=== PATIENT | female | born 1955 | race Two or more races ===

== ENCOUNTER 2025-02-18 19:01 | Emergency (ER) | payer OTHER, MEDICAID ==
[~2025-02-18] VITALS: Ht 167.6 cm; Wt 77.0 kg
--- NOTE | 2025-02-18 19:11 | ED.PDOC ---
SOB-HPI HPI Comments Alessandro: HPI: Poor Historian. 69-year-old female presents to emergency department from urgent Care for acute respiratory distress. Patient has history of asthma all her life uses albuterol and Ventolin. She ran out of her medicine yesterday. She complains of wheezing. Onset of symptoms was this past Tuesday. Denies any chest pain. At urgent care she was told she had blood pressure was high and she was satting in the 80s. She says that she does not use any supplemental oxygen at home. Patient states at one point she had borderline hypertension but she is not on any blood pressure medications. She had a recent physical and was told everything was fine. Patient was brought to the ER for hypoxemia and hypertensive urgency but she does not appear to be in significant distress. Past Medical History: Asthma, hypertension Past Surgical History: REVIEW OF SYSTEMS: CONSTITUTIONAL: Denies acute: fever, diaphoresis, chills, generalized weakness. HEAD: Denies acute: headache, photophobia Eyes: Denies acute: Double vision, vision loss, eye pain, eye discharge. EARS: Denies acute: tinnitus, hearing loss, ear discharge, ear pain, THROAT: Denies acute: sore throat, swelling, difficulty swallowing , pain with swallowing, change in voice. NECK: Denies acute: neck pain, neck swelling, stiff neck. HEART: Denies acute : chest pain, palpitations, LUNGS: Denies acute: , cough, hemoptysis ABDOMEN: Denies acute: abdominal pain, Nausea, Vomiting, diarrhea, melena , hematemesis, hematochezia SKIN: Denies acute: rash, redness, lesions, itchiness. EXTREMITIES: Denies acute: calf pain, numbness, tingling, weakness, denies pain in extremity. Denies acute: Low back pain. Neuro: Denies acute: focal neurological deficit, motor or sensory focal neurological deficit, tremors, seizure like activity, confusion, dizziness, change in mental status, loss of bowel or bladder function, cauda equina like symptoms. : Denies acute: dysuria, hematuria, flank pain, increase in urinary frequency. PSYCH: Denies acute: hallucination, suicidal ideation, homicidal ideation. FEMALE: Denies acute: abnormal vaginal bleeding, foul odor, unusual discharge. PHYSICAL EXAM: General: -----mild---acute distress, awake and alert. Head: normocephalic, atraumatic. Neck: supple, trachea is midline, no swelling. Throat: Normal phonation. Eyes:, no erythema, no purulent discharge, no proptosis, no icterus. Heart: regular rate, regular rhythm, no significant murmur appreciated. Lungs: no apparent respiratory distress, Able to speak in full sentences. No wheezing, no rhonchi, no crackles. No stridors Clear to auscultation bilaterally. Abdomen: non tender to palpation, non distended, soft, no guarding, no rebound, + bowel sounds. Neuro: Awake, Alert, oriented to name, self, situation, follows commands GCS=15. Speech is normal. Skin: no petechia, no purpura, no cyanosis, non-pale, not jaundice. Lower extremities: --no - Pitting edema no deformity, no focal swelling, no calf TTP. Makes eye contact. moves all four extremities. Face: no apparent facial droop. ED COURSE: DISCLAIMER: This medical document was created using an electronic medical record system with voice recognition software and computerized dictation system. Although this document has been carefully reviewed, there might still be some phonetic and typographical errors. Occasional wrong-word or "sound-alike" substitutions may h ave occurred due to the inherent limitations of voice recognition software. These areas are purely typographical due to imperfections of the software programs and do not reflect any compromise in the patient's medical care. Please read the chart carefully and recognize, using context, where these substitutions have occurred. Chief Complaint: Shortness of Breath Time Seen by MD: 19:10 Information Source: Patient Mode of Arrival: Ambulatory Was a procedure done? Was a procedure done?: No X-Ray, Labs, Meds, VS Vital Signs Date Time Temp Pulse Resp B/P (MAP) Pulse Ox O2 Delivery O2 Flow Rate FiO2 02/18/25 19:02 98.8 98 20 203/119 100 98.8 SEPSIS Sepsis Screen Date sepsis recognized/suspect: Feb 18, 2025 Time Sepsis recognized/suspect: 1903 Recent Procedure: No On Antibiotic Therapy: No Respiratory Rate >20: No Heart Rate >90: No Temp<36 C (96.8 F) or >38.3 C: No SBP <90 or MAP <65 mmHG: No New Acute Mental Status Change: No Is the patient on CPAP, BIPAP,: No Physician Orders Metal Drill Operator (02/18/25 ) Complete Blood Count (02/18/25 19:05) Comprehensive Metabolic Panel (02/18/25 19:05) B-Type Natriuretic Peptide (02/18/25 19:05) Lactic Acid W/ Reflex Order (02/18/25 19:05) Magnesium (02/18/25 19:05) Urinalysis (02/18/25 19:05) Troponin-I Hs (02/18/25 19:05) Chest Portable (02/18/25 19:05) Electrocardigram (02/18/25 19:05) Troponin-I Hs (02/18/25 20:05) Troponin-I Hs (02/18/25 22:05) Electrocardigram (02/18/25 20:05) Electrocardigram (02/18/25 22:05) Albuterol Medneb (Ventolin Medneb) (02/18/25 19:15) Insulin R (Human) (Insulin R) (02/18/25 19:15) Methylprednisolone Sod Succ (Solu Medrol (02/18/25 19:15) Vital Signs Date Time Temp Pulse Resp B/P (MAP) Pulse Ox O2 Delivery O2 Flow Rate FiO2 02/18/25 19:02 98.8 98 20 203/119 100 98.8 Departure 1 Departure Time of Disposition: 19:14 Impression: Primary Impression: Acute asthma exacerbation Additional Impression: Hypertensive urgency I personally scribed for HILARIA ALLEN DO ([email or web address]) on 02/18/25 at 19:11. Electronically submitted by Horacio Buckner ([email or web address]). HILARIA ALLEN DO Feb 18, 2025 19:11
[2025-02-18] MEDS ORDERED: IPRATROPIUM BROM 0.5 MG/2.5ML INH SOL NEB ONE (19:15)
[2025-02-18] MEDS ORDERED: InsuLIN REG 1unit/0.01ml Soln (100units/ml) IV ONE (19:15)
[2025-02-18] MEDS: ALBUTEROL SULF 2.5 MG/0.5ML(0.5%) NEB SOLN NEB ONE (19:26)
--- NOTE | 2025-02-18 19:33 | DVH ---
EXAM: XY CHEST PORTABLE HISTORY: sob TECHNIQUE: 1 view of the chest COMPARISON: None FINDINGS/IMPRESSION: LUNGS: No pleural effusion, consolidation, or pneumothorax MEDIASTINUM: Unremarkable BONES: No acute osseous abnormality OTHER: None
[2025-02-18 19:53] LABS: Hematocrit 43.9 % (36.0-46.0); Hemoglobin 14.1 g/dL (12.2-16.2); Mean Corpuscular Hemoglobin 27.7 pg (28.0-32.0); Mean Corpuscular Volume 86.3 fL (80.0-100.0); Nucleated Red Blood Cells % 0.1 %
[2025-02-18 20:29] LABS: Alanine Aminotransferase 12 U/L (7-40); Albumin 4.3 g/dL (3.2-4.8); Alkaline Phosphatase 81 U/L (46-116); Anion Gap 8 (5-15); BUN/Creatinine Ratio 14.9 (10.0-20.0); Blood Urea Nitrogen 15 mg/dL (9-23); Calcium 9.0 mg/dL (8.7-10.4); Carbon Dioxide 29 mmol/L (20-31); Chloride 107 mmol/L (98-107); Glucose 93 mg/dL (74-106); Magnesium 2.0 mg/dL (1.6-2.6); Potassium 3.7 mmol/L (3.5-5.1); Sodium 144 mmol/L (136-145); Total Protein 7.1 g/dL (5.7-8.2)
[2025-02-18 20:30] LABS: Bilirubin, Total 0.7 mg/dL (0.2-1.0)
[2025-02-18 21:00] VITALS: BP 212/130; PULSE 88; RESP 16; TEMP 98.8; O2SAT 98
[2025-02-18] MEDS: methylPREDNISolone SOD SUCC 125 MG/2 ML VL IV ONE (21:09)
[2025-02-18] MEDS: NITROGLYCERIN 0.4 MG SL TAB SL ONE (21:11)
--- NOTE | 2025-02-20 10:50 | ECG ---
[facility] Test Date: 2025-02-18 Test Time: 18:59:24 Pat Name: ROBINA LANDIS Department: [facility] ED Patient ID: [id number] Room: Gender: F Paper Folding Machine Operator: GILMA : 1955 Requested By: HILARIA ALLEN Order Number: [id number] Reading MD: Darin Hawkins Measurements Intervals [place] Rate: 93 P: 80 UT: 174 QRS: 140 QRSD: 84 T: 55 QT: 378 QTc: 471 Interpretive Statements Sinus rhythm Right atrial enlargement Low voltage, precordial leads Right ventricular hypertrophy ST depr, consider ischemia, inferior leads Minimal ST elevation, lateral leads Electronically Signed On 02-20-2025 18:45:42 PDT by Darin Hawkins Please click the below link to view image of tracing.
--- NOTE | 2025-02-20 10:51 | ECG ---
[facility] Test Date: 2025-02-18 Test Time: 19:00:07 Pat Name: ROBINA LANDIS Department: [facility] ED Patient ID: [id number] Room: Gender: F Wiring Technician: GILMA : 1955 Requested By: HILARIA ALLEN Order Number: [id number] Reading MD: Darin Hawkins Measurements Intervals [place] Rate: 93 P: 84 VA: 176 QRS: 132 QRSD: 78 T: 67 QT: 390 QTc: 486 Interpretive Statements Sinus rhythm Atrial premature complex Right atrial enlargement Low voltage, precordial leads Right ventricular hypertrophy Borderline prolonged QT interval Electronically Signed On 02-20-2025 18:45:52 PDT by Darin Hawkins Please click the below link to view image of tracing.
== END 2025-02-18 21:25 | disposition left against medical advice (07) ==
LOC: ER 19:01
DX: J45.901 Unspecified asthma with (acute) exacerbation (principal); I16.0 Hypertensive urgency; I10 Essential (primary) hypertension
CPT/HCPCS: 36415; 71045; 80053; 83605; 83735; 83880; 84484; 85025; 93005; 94640; 96374; 99285; J2919

== ENCOUNTER 2025-06-15 10:24 | Inpatient (IN) | payer OTHER, MEDICAID ==
[~2025-06-15] VITALS: Ht 167.6 cm; Wt 62.5 kg
--- NOTE | 2025-06-15 10:32 | ED.PDOC ---
SOB-HPI HPI Comments This is a 70 year old female BIB grandson presenting to the ED with chief complaint of SOB. Patient reports that she has been experiencing worsening SOB with associated generalized weakness, ankle swelling, and green productive cough for the past 2 days. Grandson relays that he took the patient to today and she was found to be 40% on RA, being sent to the ED due to this. Patient notes she has used her inhaler at home with no relief in SOB noted. Patient denies any chest pain, fever, chills, dizziness, or N/V. Chief Complaint: Shortness of Breath Time Seen by MD: 10:30 Reviewed notes: Nurses Notes, Medications, Allergies Information Source: Patient, Relative (GrandChild) Mode of Arrival: Ambulatory Severity: Moderate Timing: Days Duration: Since onset Context: At Rest PE Risk Factors: None History of: Asthma Prehospital treatment: Breathing Tx Modifying Factors: Nothing Associated Signs and Symptoms: Cough, Leg Swelling If cough with SOB: Productive, Green Past Medical History PAST MEDICAL HISTORY: Asthma, HTN Surgical History: Denies all surgeries ADOPTION AGENT History: Denies all ADOPTION AGENT Hx Family History Family History: Reviewed,noncontributory to illness Social History Smoker: Non-Smoker Alcohol: Denies ETOH Use Drugs: Denies Drug Use Lives In: Home Constitutional: reports: weakness; denies: chills, diaphoresis, fatigue, fever, malaise, sweats, others EENTM: denies: blurred vision, double vision, ear bleeding, ear discharge, ear drainage, ear pain, ear ringing, eye pain, eye redness, hearing loss, mouth pain, mouth swelling, nasal discharge, nose bleeding, nose congestion, nose pain, photophobia, tearing, throat pain, throat swelling, voice changes, others Respiratory: reports: cough, shortness of breath; denies: hemoptysis, orthopnea, SOB at rest, SOB with excertion, stridor, wheezing, others Cardiovascular: reports: edema; denies: chest pain, dizzy spells, diaphoresis, Dyspnea on exertion, irregular heart beat, left arm pain, lightheadedness, palpitations, PND, syncope, others Gastrointestinal: denies: abdomen distended, abdominal pain, blood streaked bowels, constipated, diarrhea, dysphagia, difficulty swallowing, hematemesis, melena, nausea, poor appetite, poor fluid intake, rectal bleeding, rectal pain, vomiting, others Genitourinary: denies: abnormal vagina bleeding, burning, dyspareunia, dysuria, flank pain, frequency, hematuria, incontinence, pain, , vagina discharge, urgency, others Neurological: denies: dizziness, fainting, headache, left sided numbness, left sided weakness, numbness, paresthesia, pre-existing deficit, right sided numbness, right sided weakness, seizure, speech problems, tingling, tremors, weakness, others Musculoskeletal: denies: back pain, gout, joint pain, joint swelling, muscle pain, muscle stiffness, neck pain, others Integumetry: denies: bruises, change in color, change in hair/nails, dryness, laceration, lesions, lumps, rash, wounds, others Allergic/Immunocompromised: denies: Difficulty Healing, Frequent Infections, Hives, Itching, others Hematologic/Lymphatic: denies: anemia, blood clots, easy bleeding, easy bruising, swollen glands, others Endocrine: denies: excessive hunger, excessive sweating, excessive thirst, excessive urination, flushing, intolerance to cold, intolerance to heat, unexplained weight gain, unexplained weight loss, others Psychiatric: denies: anxiety, bipolar disorder, depression, hopeless, panic disorder, schizophrenia, sleepless, suicidal, others All Other Systems: Reviewed and Negative Physical Exam General Appearance: No Apparent Distress, Normal HEENT: Normal ENT Inspection, Pharynx Normal, TMs Normal Neck: Full Range of Motion, Non-Tender, Normal, Normal Inspection Respiratory: Chest Non-Tender, No Accessory Muscle Use, Other (Tachypneic) Cardiovascular: No Edema, No JVD, No Murmur, No Gallop, Normal Peripheral Pulses, Regular Rate/Rhythm, Tachycardia Breast Exam: Deferred Gastrointestinal: No Organomegaly, Non Tender, No Pulsatile Mass, Normal Bowel Sounds, Soft Genitalia: Deferred Pelvic: Deferred Rectal: Deferred Extremities: No calf tenderness, Normal capillary refill, Normal inspection, Normal range of motion, Non-tender, No pedal edema Musculoskeletal : Apperance: Normal Neurologic: Alert, leather craftsman II-XII nml as Tested, No Motor Deficits, Normal Affect, Normal Mood, No Sensory Deficits Cerebellar Function: Normal Reflexes: Normal Skin: Dry, Normal Color, Warm Lymphatic: No Adenopathy Was a procedure done? Was a procedure done?: No Differential Dx Differential Diagnosis: Asthma, CHF, COPD, Pneumonia, Respiratory Distress X-Ray, Labs, Meds, VS Vital Signs Date Time Temp Pulse Resp B/P (MAP) Pulse Ox O2 Delivery O2 Flow Rate FiO2 06/15/25 11:36 94 17 97 Non-Rebreather 15 N/A 06/15/25 11:19 24 06/15/25 10:49 16 100 Non-Rebreather 15 N/A 06/15/25 10:33 100 Non-Rebreather 15 N/A 06/15/25 10:32 97.6 87 20 138/97 (111) 100 97.6 06/15/25 10:26 97.8 95 26 138/97 100 97.8 Lab Test 06/15/25 11:45 06/15/25 10:45 Range/Units Troponin I High Sensitivity 58 *H 50 *H </=34 ng/L White Blood Count 6.3 4.4-10.8 10^3/uL Red Blood Count 4.99 4.0-5.20 10^6/uL Hemoglobin 13.6 12.2-16.2 g/dL Hematocrit 42.9 36.0-46.0 % Mean Corpuscular Volume 85.8 80.0-100.0 fL Mean Corpuscular Hemoglobin 27.3 L 28.0-32.0 pg Mean Corpuscular Hemoglobin Concent 31.9 L 32.0-36.0 g/dL Red Cell Distribution Width 17.8 H 11.8-14.3 % Platelet Count 355 140-450 10^3/uL Mean Platelet Volume 7.9 6.9-10.8 fL Neutrophils (%) (Auto) 73.8 37.0-80.0 % Lymphocytes (%) (Auto) 14.4 10.0-50.0 % Monocytes (%) (Auto) 10.5 0.0-12.0 % Eosinophils (%) (Auto) 0.5 0.0-7.0 % Basophils (%) (Auto) 0.8 0.0-2.0 % Neutrophils # (Auto) 4.6 1.6-8.6 10 ^3/uL Lymphocytes # (Auto) 0.9 0.4-5.4 10 ^3/uL Monocytes # (Auto) 0.7 0-1.3 10 ^3/uL Eosinophils # (Auto) 0 0-0.8 10 ^3/uL Basophils # (Auto) 0.1 0-0.2 10 ^3/uL Nucleated Red Blood Cells 0.8 % Sodium Level 141 136-145 mmol/L Potassium Level 5.0 3.5-5.1 mmol/L Chloride Level 99 98-107 mmol/L Carbon Dioxide Level 32 H 20-31 mmol/L Anion Gap 10 5-15 Blood Urea Nitrogen 35 H 9-23 mg/dL Creatinine 1.76 H 0.550-1.02 mg/dL Glomerular Filtration Rate Calc 31 >90 mL/min BUN/Creatinine Ratio 19.9 10.0-20.0 Serum Glucose 99 74-106 mg/dL Lactic Acid Level 1.6 0.4-2.0 mmol/L Calcium Level 8.7 8.7-10.4 mg/dL Current Medications Medications (Trade) Dose Ordered Sig/Rick Route Start Time Stop Time Status Last Admin Albuterol (Ventolin Medneb) 5 mg ONCE ONCE NEB 06/15/25 10:30 06/15/25 10:32 DC 06/15/25 10:49 Ipratropium [place] (Atrovent Medneb) 0.5 mg ONCE ONCE NEB 06/15/25 10:30 06/15/25 10:32 DC 06/15/25 10:49 Time of 1ST Reevaluation: 11:29 Reevaluation 1ST: Unchanged Patient Education/Counseling: Diagnosis, Treatment Family Education/Counseling: Diagnosis, Treatment SEPSIS Sepsis Screen Physician Orders Urinalysis (06/15/25 10:30) Chest Portable (06/15/25 10:30) Blood Culture (06/15/25 10:30) Electrocardigram (06/15/25 10:30) Troponin-I Hs (06/15/25 13:30) Electrocardigram (06/15/25 11:30) Electrocardigram (06/15/25 13:30) Vital Signs Date Time Temp Pulse Resp B/P (MAP) Pulse Ox O2 Delivery O2 Flow Rate FiO2 06/15/25 11:36 94 17 97 Non-Rebreather 15 N/A 06/15/25 11:19 24 06/15/25 10:49 16 100 Non-Rebreather 15 N/A 06/15/25 10:33 100 Non-Rebreather 15 N/A 06/15/25 10:32 97.6 87 20 138/97 (111) 100 97.6 06/15/25 10:26 97.8 95 26 138/97 100 97.8 Laboratory Tests Test 06/15/25 10:45 Lactic Acid Level 1.6 mmol/L (0.4-2.0) White Blood Count 6.3 10^3/uL (4.4-10.8) Medications Medications Dose Ordered Sig/Rick Route Start Time Stop Time Status Last Admin Dose Admin Albuterol 5 mg ONCE ONCE NEB 06/15/25 10:30 06/15/25 10:32 DC 06/15/25 10:49 Ipratropium [place] 0.5 mg ONCE ONCE NEB 06/15/25 10:30 06/15/25 10:32 DC 06/15/25 10:49 Departure 1 Departure Time of Disposition: 13:11 (Patient presented with acute shortness of breath concerning for acute on chronic COPD Exacerbation, Pneumonia, ACS, CHF, Pneumothorax. Less likely PE, Dissection. Data: 1. I ordered and reviewed the result of at least 3 labs including a CBC, BMP, and Troponin. 2. I independently interpreted the following tests: Chest X-ray shows benign chest .Risk:This patient has a high risk of morbidity due to further diagnostic testing or treatment and may suffer from respiratory or cardiac etiology . Workup reveals a likely COPD Exacerbation and patient should be admitted for further workup. and possible expert consultation.) Impression: Primary Impression: Acute and chronic respiratory failure Additional Impression: Shortness of breath Disposition: ADMITTED INPATIENT Admit to: Tele Condition: Guarded Critical Care Note Critical Care Time?: Yes (45 min-critical care time only) Stability Stability form required: No Heart Score Heart Score: Heart Score Response (Comments) Value History Highly Suspicious 2 EKG Normal 0 Age >65 2 Risk Factors >3 or Hx ASHD 2 Troponin 1-2 x's Normal limit 1 Total 7 I personally scribed for JULIET NAIK MD ([email or web address]) on 06/15/25 at 10:32. Electronically submitted by Shubham May ([email or web address]). JULIET NAIK MD Jun 15, 2025 10:32
[2025-06-15] MEDS: ALBUTEROL SULF 2.5 MG/0.5ML(0.5%) NEB SOLN NEB ONE (10:49)
[2025-06-15] MEDS: IPRATROPIUM BROM 0.5 MG/2.5ML INH SOL NEB ONE (10:49)
[2025-06-15 10:58] LABS: Hematocrit 42.9 % (36.0-46.0); Hemoglobin 13.6 g/dL (12.2-16.2); Mean Corpuscular Hemoglobin 27.3 pg (28.0-32.0); Mean Corpuscular Volume 85.8 fL (80.0-100.0); Nucleated Red Blood Cells % 0.8 %
[2025-06-15 11:04] LABS: Chloride 99 mmol/L (98-107); Potassium 5.0 mmol/L (3.5-5.1); Sodium 141 mmol/L (136-145)
[2025-06-15 11:05] LABS: Anion Gap 10 (5-15); Calcium 8.7 mg/dL (8.7-10.4)
[2025-06-15 11:07] LABS: Carbon Dioxide 32 mmol/L (20-31)
--- NOTE | 2025-06-15 11:09 | DVH ---
AP portable chest CLINICAL INDICATION: sob Comparison: 02/18/2025 FINDINGS: Heart size is enlarged. The aorta is tortuous. The main pulmonary artery segment is prominent. There are no infiltrates or effusions IMPRESSION: 1. No acute cardiopulmonary pathology as on previous exam prominent main pulmonary artery segment either due to pulmonary hypertension or [id number] shunt.
[2025-06-15 11:10] LABS: BUN/Creatinine Ratio 19.9 (10.0-20.0); Glucose 99 mg/dL (74-106)
[2025-06-15 11:11] LABS: Blood Urea Nitrogen 35 mg/dL (9-23)
--- NOTE | 2025-06-15 11:19 | RESUS ---
CODE ASSIST ASSESSSMENT Initial Information Code Assist Date: Jun 15, 2025 Code Assist Time: 09:56 Location of Arrest: Room # Patient in Urgent Care Crash Cart Opened and Supplies: No Situation Staff concerned/worried, speci: SaO2 <90 Situation comment: Patient arrived to for treatmnent of persistent SOB, cough with sputum and gen weakness - tried home nebulizer treatments without success. Background Background: Grandsons with patient - states she has a history of HTN and stopped taking her BP meds Assessment Blood Pressure Systolic: 160 Blood Pressure Diastolic: 88 Respiratory Rate: 24 O2 Sat by Pulse Oximetry: 100 Bedside Blood Glucose: 93 Assessment comment: HR 66 Recommendations/Interventions Procedures: Accu check, O2 Mask/NC Other Interventions Patient with SAO2 47% on RA - NRB applied with NC also at 4L - SAO2 100% Outcome Outcome: Other Follow up Report Follow up Report Patient taken to ER per WC accompanied per grandson Team Members Team Members Joana RN, Rocky ERT, Flor ASSISTANT MERCHANDISE MANAGER, Jamia DYSON, Audrey Gan RN Jun 15, 2025 11:19
[2025-06-15 11:36] VITALS: PULSE 94; RESP 17; O2SAT 97
--- NOTE | 2025-06-15 13:58 | DVHHP2 ---
History of Present Illness Reason for Visit: Acute asthma exacerbation History of Present Illness The patient is a 70-year-old female with past medical history of asthma and hypertension who presented to [facility] ED with complaint of shortness of breaths. Patient reports that she has been experiencing worsening difficulty breathing, increased work of breathing associated with generalized weakness, ankle swelling, green productive cough for the past 2 days. Patient was seen and evaluated in the ED, laboratory data shows WBC 6.3, platelets 355, sodium 141, potassium 4.0, BUN 35, creatinine 1.76, GFR 31, glucose 99, calcium 8.7, troponin 58, blood pressure 138/97, heart rate 94, temperature 97.6 F, O2 saturation 97% on non-rebreather. Chest x-ray show no acute cardiopulmonary abnormality. Please see medication orders section in the computer. On my assessment, patient denied chest pain, no headache, dizziness, diaphoresis, currently on oxygen, no diarrhea, nausea, vomiting, fever, no chills. Patient was admitted for further evaluation and medical management. Past Medical History Asthma, HTN Past Surgical History Denies all surgeries Family History Reviewed, noncontributory to the management of this case. Past Social History The patient lives at home, denies smoking, alcohol or illicit drugs abuse. Review of Systems Constitutional: Yes: Weakness; No: Fever, Chills, Sweats, Malaise, Other Eyes: No: Pain, Vision change, Conjunctivae inflammation, Eyelid inflammation, Other, Redness ENT: No: Ear pain, Ear discharge, Nose pain, Nose discharge, Nose congestion, Mouth pain, Mouth swelling, Throat pain, Throat swelling, Other Respiratory: Cough, Shortness of breath, SOB with excertion, Other (SOB at rest); No: Dry, Wheezing, Hemoptysis, Pleuritic Pain, Sputum, Wheezing Cardiovascular: Edema; No: Chest Pain, Palpitations, Orthopnea, Paroxysmal Noc. Dyspnea, Lt Headedness, Other Gastrointestinal: No: Nausea, Vomiting, Abdominal Pain, Diarrhea, Constipation, Melena, Hematochezia, Other Genitourinary: No Dysuria, No Frequency, No Incontinence, No Hematuria, No Retention, No Other Musculoskeletal: No: other, neck pain, shoulder pain, arm pain, back pain, hand pain, leg pain, foot pain Skin: No: Rash, Lesions, Jaundice, Bruising, Other Neurological: No: Weakness, Numbness, Incoordination, Change in speech, Confusion, Seizures, Other Allergies: Coded Allergies: NO KNOWN ALLERGIES (Unverified , 02/18/25) Exam Vital Signs Vital Signs Date Time Temp Pulse Resp B/P (MAP) Pulse Ox O2 Delivery O2 Flow Rate FiO2 06/15/25 11:36 94 17 97 Non-Rebreather 15 N/A 06/15/25 11:19 06/15/25 10:32 138/97 (111) General Appearance: Alert, Oriented X3, Cooperative, No acute distress HEENT: Atraumatic, PERRLA, EOMI, Mucous membr. moist/pink Respiratory: Normal air movement, Other (Diminished breath sounds) Cardiovascular: Regular rate, Normal S1, Normal S2, No murmurs Abdominal: Normal bowel sounds, Soft, No tenderness, No hepatospenomegaly, No masses Extremities: No clubbing, No cyanosis, No edema, Normal pulses, No tenderness/swelling Skin: No rashes, No significant lesion Neuro: Normal speech, Normal tone, Sensation intact, Cranial nerves 3-12 NL, Reflexes 2+, Other (Generalized weakness) Psych/Mental Status: Mental status NL, Mood NL Labs/Xrays Labs Test 06/15/25 13:36 06/15/25 10:45 Range/Units White Blood Count 6.3 4.4-10.8 10^3/uL Red Blood Count 4.99 4.0-5.20 10^6/uL Hemoglobin 13.6 12.2-16.2 g/dL Hematocrit 42.9 36.0-46.0 % Mean Corpuscular Volume 85.8 80.0-100.0 fL Mean Corpuscular Hemoglobin 27.3 L 28.0-32.0 pg Mean Corpuscular Hemoglobin Concent 31.9 L 32.0-36.0 g/dL Red Cell Distribution Width 17.8 H 11.8-14.3 % Platelet Count 355 140-450 10^3/uL Mean Platelet Volume 7.9 6.9-10.8 fL Neutrophils (%) (Auto) 73.8 37.0-80.0 % Lymphocytes (%) (Auto) 14.4 10.0-50.0 % Monocytes (%) (Auto) 10.5 0.0-12.0 % Eosinophils (%) (Auto) 0.5 0.0-7.0 % Basophils (%) (Auto) 0.8 0.0-2.0 % Neutrophils # (Auto) 4.6 1.6-8.6 10 ^3/uL Lymphocytes # (Auto) 0.9 0.4-5.4 10 ^3/uL Monocytes # (Auto) 0.7 0-1.3 10 ^3/uL Eosinophils # (Auto) 0 0-0.8 10 ^3/uL Basophils # (Auto) 0.1 0-0.2 10 ^3/uL Nucleated Red Blood Cells 0.8 % Sodium Level 141 136-145 mmol/L Potassium Level 5.0 3.5-5.1 mmol/L Chloride Level 99 98-107 mmol/L Carbon Dioxide Level 32 H 20-31 mmol/L Anion Gap 10 5-15 Blood Urea Nitrogen 35 H 9-23 mg/dL Creatinine 1.76 H 0.550-1.02 mg/dL Glomerular Filtration Rate Calc 31 >90 mL/min BUN/Creatinine Ratio 19.9 10.0-20.0 Serum Glucose 99 74-106 mg/dL Lactic Acid Level 1.6 0.4-2.0 mmol/L Calcium Level 8.7 8.7-10.4 mg/dL PATIENT: ROBINA LANDIS PACCT: [id number] UNIT: [id number] : 1955 LOC: ER ROOM / BED: / AGE / SEX: 70 / F ADM STATUS: REG ER SERVICE 1030 ORDERING PHYSICIAN: JULIET NAIK MD PROCEDURE(s): CXRP - CHEST PORTABLE REASON: sob ORDER NUMBER(s): [id number], ACCESSION NUMBER(s): [id number] AP portable chest CLINICAL INDICATION: sob Comparison: 02/18/2025 FINDINGS: Heart size is enlarged. The aorta is tortuous. The main pulmonary artery segment is prominent. There are no infiltrates or effusions IMPRESSION: 1. No acute cardiopulmonary pathology as on previous exam prominent main pulmonary artery segment either due to pulmonary hypertension or [id number] shunt. SEPSIS Sepsis Screen Date sepsis recognized/suspect: Jun 15, 2025 Time Sepsis recognized/suspect: 1141 Recent Procedure: No On Antibiotic Therapy: No Respiratory Rate >20: Yes Heart Rate >90: Yes Temp<36 C (96.8 F) or >38.3 C: No SBP <90 or MAP <65 mmHG: No New Acute Mental Status Change: No Is the patient on CPAP, BIPAP,: No Physician Orders Urinalysis (06/15/25 10:30) Chest Portable (06/15/25 10:30) Blood Culture (06/15/25 10:30) Electrocardigram (06/15/25 10:30) Troponin-I Hs (06/15/25 13:30) Electrocardigram (06/15/25 11:30) Electrocardigram (06/15/25 13:30) Methylprednisolone Sod Succ (Solu Medrol (06/15/25 14:00) Famotidine Injection (Pepcid Injection) (06/15/25 22:00) Albuterol Medneb (Ventolin Medneb) (06/15/25 14:00) Vital Signs Date Time Temp Pulse Resp B/P (MAP) Pulse Ox O2 Delivery O2 Flow Rate FiO2 06/15/25 11:36 94 17 97 Non-Rebreather 15 N/A 06/15/25 11:19 24 06/15/25 10:49 16 100 Non-Rebreather 15 N/A 06/15/25 10:33 100 Non-Rebreather 15 N/A 06/15/25 10:32 97.6 87 20 138/97 (111) 100 97.6 06/15/25 10:26 97.8 95 26 138/97 100 97.8 Laboratory Tests Test 06/15/25 10:45 Lactic Acid Level 1.6 mmol/L (0.4-2.0) White Blood Count 6.3 10^3/uL (4.4-10.8) Medications Medications Dose Ordered Sig/Rick Route Start Time Stop Time Status Last Admin Dose Admin Albuterol 5 mg ONCE ONCE NEB 06/15/25 10:30 06/15/25 10:32 DC 06/15/25 10:49 5 MG Ipratropium [place] 0.5 mg ONCE ONCE NEB 06/15/25 10:30 06/15/25 10:32 DC 06/15/25 10:49 0.5 MG Assessment/Plan Assessment/Plan Acute asthma exacerbation Acute renal injury Elevated troponin Acute respiratory failure with hypoxia Plan 1. Admit to telemetry unit 2. Breathing treatment 3. Pain control management 4. Management of fluids and electrolytes 5. Consultation for hospitalist 6. Diagnostic tests chest x-ray 7. DVT prophylaxis-on SCDs 8. Repeat labs CBC, CMP in a.m. 9. Continue with current medical management 10. Treatment plan discussed with patient and RN. Patient verbalized understand ing. Plan discussed with: Patient, Other (RN) My Orders Orders - ASHLEE SAGASTUME DNP Procedure Category Date Status Time Methylprednisolone PHA 06/15/25 Verified Sod Succ (Solu Medrol 14:00 Famotidine Injection PHA 06/15/25 Verified (Pepcid Injection) 22:00 Albuterol Medneb PHA 06/15/25 Verified (Ventolin Medneb) 14:00 Problem List: (1) Acute asthma exacerbation (2) Acute renal injury (3) Elevated troponin (4) Acute respiratory failure with hypoxia Date of Service: Jun 15, 2025 Billing Provider: ASHLEE SAGASTUME DNP Common Visit Codes: [id number] INP/OBS CARE (HIGH) ASHLEE SAGASTUME DNP Jun 15, 2025 13:58
[2025-06-15] MEDS ORDERED: ONDANSETRON HCL 4 MG/2 ML VIAL IV PRN (14:00)
[2025-06-15] MEDS ORDERED: MORPHINE SULFATE INJ 2 MG/ml SYRG IV PRN (14:00)
[2025-06-15] MEDS: SODIUM CHLOR 0.9% PF (SALINE LOCK) 10ML VIAL/SYR IV SCH (14:00)
[2025-06-15] MEDS ORDERED: HYDROcodone-ACET 5/325MG TAB PO PRN (14:00)
[2025-06-15] MEDS ORDERED: NITROGLYCERIN 0.4 MG SL TAB SL PRN (14:00)
[2025-06-15] MEDS: methylPREDNISolone SOD SUCC 40 MG/ML VL IV SCH (14:00)
[2025-06-15] MEDS ORDERED: DOCUSATE SOD 100 MG CAP PO PRN (14:00)
[2025-06-15] MEDS ORDERED: ACETAMINOPHEN 325 MG TAB PO PRN (14:00)
[2025-06-15] MEDS: AZITHROMYCIN 250 MG TAB PO ONE (14:04)
[2025-06-15] MEDS: methylPREDNISolone SOD SUCC 125 MG/2 ML VL IV ONE (14:05)
[2025-06-15 14:28] VITALS: BP 138/97; PULSE 94; RESP 18; TEMP 97.6; O2SAT 96
[2025-06-15] MEDS: ASPirin-EC 325mg tab PO ONE (15:38)
[2025-06-15 19:33] VITALS: PULSE 83; RESP 12; O2SAT 98
[2025-06-15 19:36] LABS: COVID19 ANTIGEN SOFIA FIA NEGATIVE (NEGATIVE)
[2025-06-15 22:12] VITALS: BP 147/87; PULSE 88; RESP 17; TEMP 98; O2SAT 95
[2025-06-15] MEDS: FAMOTIDINE (10MG/ML) 2ML VL IV SCH (23:24)
[2025-06-15] MEDS: METOPROLOL TARTRATE 25 MG TAB PO SCH (23:25)
[2025-06-16] VITALS (14 sets, daily range): BP systolic 117–144; BP diastolic 64–87; PULSE 76–97; RESP 16–20; TEMP 97.1–98.6; O2SAT 75–100
[2025-06-16] MEDS: IPRATROPIUM BROM 0.5 MG/2.5ML INH SOL NEB PRN (03:34)
[2025-06-16] MEDS: ALBUTEROL SULF 2.5 MG/0.5ML(0.5%) NEB SOLN NEB PRN (03:34)
[2025-06-16 07:34] LABS: Hematocrit 45.3 % (36.0-46.0); Hemoglobin 13.8 g/dL (12.2-16.2); Mean Corpuscular Hemoglobin 26.5 pg (28.0-32.0); Mean Corpuscular Volume 87.1 fL (80.0-100.0); Nucleated Red Blood Cells % 1.4 %
[2025-06-16 07:35] LABS: Albumin 4.1 g/dL (3.2-4.8); Alkaline Phosphatase 75 U/L (46-116); Anion Gap 11 (5-15); BUN/Creatinine Ratio 18.9 (10.0-20.0); Bilirubin, Total 1.1 mg/dL (0.2-1.0); Calcium 8.8 mg/dL (8.7-10.4); Carbon Dioxide 29 mmol/L (20-31); Sodium 138 mmol/L (136-145); Total Protein 7.1 g/dL (5.7-8.2)
[2025-06-16 07:43] LABS: Alanine Aminotransferase 179 U/L (7-40); Blood Urea Nitrogen 34 mg/dL (9-23); Chloride 98 mmol/L (98-107); Glucose 107 mg/dL (74-106); Potassium 5.5 mmol/L (3.5-5.1)
[2025-06-16] MEDS ORDERED: IPRATROPIUM BROM 0.5 MG/2.5ML INH SOL NEB SCH (12:15)
[2025-06-16] MEDS ORDERED: ALBUTEROL SULF 2.5 MG/0.5ML(0.5%) NEB SOLN NEB SCH (12:15)
--- NOTE | 2025-06-16 12:15 | DVHPN2 ---
Reviewed: H&P Changes from previous H/P or p: No Changes General: Per HPI Eyes: No Pain, No Vision change, No Conjunctivae inflammation, No Eyelid inflammation, No Other, No Redness ENT: No Ear pain, No Ear discharge, No Nose pain, No Nose discharge, No Nose congestion, No Mouth pain, No Mouth swelling, No Throat pain, No Throat swelling, No Other Cardiovascular: No Chest Pain, No Palpitations, No Orthopnea, No Paroxysmal Noc. Dyspnea; Edema; No Lt Headedness, No Other Respiratory: Cough; No Dry; Shortness of breath, SOB with excertion; No Wheezing, No Hemoptysis, No Pleuritic Pain, No Sputum; Other (SOB at rest) Gastrointestinal: No Nausea, No Vomiting, No Abdominal Pain, No Diarrhea, No Constipation, No Melena, No Hematochezia, No Other Genitourinary: No Dysuria, No Frequency, No Incontinence, No Hematuria, No Retention, No Other Musculoskeletal: No other, No neck pain, No shoulder pain, No arm pain, No back pain, No hand pain, No leg pain, No foot pain Skin: No Rash, No Lesions, No Jaundice, No Bruising, No Other Objective Vitals Vital Signs Date Time Temp Pulse Resp B/P (MAP) Pulse Ox O2 Delivery O2 Flow Rate FiO2 06/16/25 10:28 82 144/87 06/16/25 09:43 90 Mask 12.0 06/16/25 09:43 N/A 06/16/25 08:32 98.6 18 98.6 Intake/Output Intake and Output 06/16/25 07:00 Intake Total 380 ml Balance 380 ml Intake Oral 380 ml # Voids 2 Exam GEN: Healthy appearing, well-developed, NAD. HEENT: NC/AT; MMM. CV: RRR, no m/r/g. LUNGS: Distant breath sounds, coarse upper airway sounds in all traore ABD: Soft, NT/ND, NBS, no masses or organomegaly. EXT: skin Warm, well perfused. no rashes. No clubbing, cyanosis, or edema. NEURO: Ambulating with no limitations. No focal deficits. Medications Current Medications Medications Dose Ordered Sig/Rick Route Start Time Stop Time Status Last Admin Dose Admin Methylprednisolone Sodium Succinate 40 mg Q8HR IV 06/15/25 14:00 06/16/25 06:02 40 MG Famotidine 20 mg Q12HR IV 06/15/25 22:00 06/16/25 10:28 20 MG Albuterol 2.5 mg Q4HPRN PRN NEB 06/15/25 14:00 06/16/25 03:34 2.5 MG Ipratropium [place] 0.5 mg Q4HPRN PRN NEB 06/15/25 14:00 06/16/25 03:34 0.5 MG Aspirin 81 mg DAILY PO 06/16/25 10:00 06/16/25 10:28 81 MG Sodium Chloride 10 ml Q8HR IV 06/15/25 14:00 06/16/25 06:02 10 ML Acetaminophen/ Hydrocodone Bitart 1 tab Q4HP PRN PO 06/15/25 14:00 Ondansetron HCl 4 mg Q4HP PRN IV 06/15/25 14:00 Docusate Sodium 100 mg BIDPRN PRN PO 06/15/25 14:00 Acetaminophen 650 mg Q6HP PRN PO 06/15/25 14:00 Nitroglycerin 0.4 mg Q5MINP PRN SL 06/15/25 14:00 Morphine Sulfate 2 mg Q30M PRN IV 06/15/25 14:00 Amlodipine Besylate 5 mg DAILY PO 06/16/25 10:00 06/16/25 10:28 5 MG Metoprolol Tartrate 25 mg BID PO 06/15/25 22:00 06/16/25 10:28 25 MG Laboratory Results Laboratory Tests 06/16/25 05:54 Chemistry Test 06/16/25 05:54 Albumin 4.1 g/dL (3.2-4.8) Calcium Level 8.8 mg/dL (8.7-10.4) Total Protein 7.1 g/dL (5.7-8.2) LFT Test 06/16/25 05:54 Alanine Aminotransferase (ALT) 179 U/L (7-40) H Alkaline Phosphatase 75 U/L (46-116) Aspartate Amino Transferase (AST) 136 U/L (13-40) H Total Bilirubin 1.1 mg/dL (0.2-1.0) H Microbiology Microbiology Date/Time Source Procedure Growth Status 06/15/25 10:45 Blood Blood Culture - Preliminary NO GROWTH AFTER 24 HOURS OF INCUBATION. Resulted Labs and/or images reviewed: Labs reviewed by me, Image(s) reviewed by me Assessment/Plan Assessment/Plan 70-year-old female with past medical history of asthma and hypertension who presented to [facility] ED with complaint of shortness of breaths. Patient reports that she has been experiencing worsening difficulty breathing, increased work of breathing associated with generalized weakness, ankle swelling, green productive cough for the past 2 days. 06/16: Patient is here with flu pneumonia, on COPD history, still smoking quarter pack a day. We will to duo nebs q.6, Rocephin 1 g daily, azithromycin 500 mg daily,. Also treating as pneumonia Gram-negative Gram-positive. We will start zinc 220 daily, Tamiflu 75 mg b.i.d.,. Okay to Atrovent G-tube H 0.5 mg has a prn on top. Diagnosis: Acute on chronic hypoxic respiratory failure Influenza pneumonia Pneumonia, Gram-negative Gram-positive possible Sepsis due to above Acute COPD exacerbation, with pneumonitis Asthma COPD overlap syndrome Hypotension Plan: Duo nebs q.6 Prn Atrovent q.2h IV antibiotics ceftriaxone azithromycin Tamiflu 5 days Oxygen goal 80-92% Continue home medications Tele Full code Plan discussed with: Other Date of Service: Jun 16, 2025 Billing Provider: BERNIE ROME MD Common Visit Codes: [id number] INP/OBS CARE(HIGH) BERNIE ROME MD Jun 16, 2025 12:15
[2025-06-16] MEDS ORDERED: OSELTAMIVIR 75 MG CAP PO ONE (14:00)
[2025-06-16] MEDS: InsuLIN REG 1unit/0.01ml Soln (100units/ml) IV ONE (14:00)
--- NOTE | 2025-06-16 14:34 | DVHINCON2 ---
Date of service: Jun 16, 2025 Referring Physician hospitalist Reason for Consultation luiza History of Present Illness 70 year old female smoker w/ COPD p/w SOB and cough. She is found to have influenza. Nephrology called for LUIZA Allergies: Coded Allergies: NO KNOWN ALLERGIES (Unverified , 02/18/25) Current Medications Current Medications Medications (Trade) Dose Ordered Sig/Rick Route PRN Reason Start Time Stop Time Status Last Admin Famotidine (Pepcid Injection) 20 mg Q12HR IV 06/15/25 22:00 06/16/25 10:28 Aspirin 81 mg DAILY PO 06/16/25 10:00 06/16/25 10:28 Amlodipine Besylate (Norvasc Tablet) 5 mg DAILY PO 06/16/25 10:00 06/16/25 10:28 Metoprolol Tartrate (Lopressor Tablet) 25 mg BID PO 06/15/25 22:00 06/16/25 10:28 Albuterol (Ventolin Medneb) 2.5 mg Q6HR NEB 06/16/25 12:15 06/16/25 13:20 DC Ipratropium [place] (Atrovent Medneb) 0.5 mg Q6HR NEB 06/16/25 12:15 06/16/25 13:20 DC Oseltamivir Phosphate (Tamiflu 30MG Capsule) 30 mg DAILY PO 06/17/25 10:00 06/21/25 09:59 Ceftriaxone Sodium 50 ml @ 100 mls/hr DAILY@09 IV 06/17/25 09:00 Azithromycin 250 ml @ 125 mls/hr DAILY IV 06/17/25 10:00 Zinc Sulfate 220 mg DAILY PO 06/17/25 10:00 Albuterol (Ventolin Medneb) 2.5 mg Q6HR NEB 06/16/25 18:00 Ipratropium [place] (Atrovent Medneb) 0.5 mg Q6HR NEB 06/16/25 18:00 Family History: Asthma G8 MOTHER Bronchitis G8 MOTHER Hypertension G8 MOTHER G8 FATHER Review of Systems SOB H&P Exam Vital Signs/I&O Vital Sign Date Time Temp Pulse Resp B/P (MAP) Pulse Ox O2 Delivery O2 Flow Rate FiO2 06/16/25 13:00 98.3 88 16 143/77 (99) 95 98.3 06/16/25 09:43 Mask 12.0 06/16/25 09:43 N/A Intake and Output 06/15/25 06/16/25 19:00 07:00 Intake Total 380 ml Balance 380 ml Intake Oral 380 ml # Voids 2 Physical Exam ill appears female appears in distress decreased breaths + cough no edema Labs/Diagnostic Data Labs/Diagnostic Data Laboratory Tests Test 06/16/25 05:54 06/15/25 17:53 06/15/25 17:03 06/15/25 13:36 Range/Units White Blood Count 5.3 4.4-10.8 10^3/uL Red Blood Count 5.20 4.0-5.20 10^6/uL Hemoglobin 13.8 12.2-16.2 g/dL Hematocrit 45.3 36.0-46.0 % Mean Corpuscular Volume 87.1 80.0-100.0 fL Mean Corpuscular Hemoglobin 26.5 L 28.0-32.0 pg Mean Corpuscular Hemoglobin Concent 30.4 L 32.0-36.0 g/dL Red Cell Distribution Width 18.2 H 11.8-14.3 % Platelet Count 291 140-450 10^3/uL Mean Platelet Volume 8.4 6.9-10.8 fL Neutrophils (%) (Auto) 92.0 H 37.0-80.0 % Lymphocytes (%) (Auto) 6.6 L 10.0-50.0 % Monocytes (%) (Auto) 1.3 0.0-12.0 % Eosinophils (%) (Auto) 0.1 0.0-7.0 % Basophils (%) (Auto) 0.0 0.0-2.0 % Neutrophils # (Auto) 4.9 1.6-8.6 10 ^3/uL Lymphocytes # (Auto) 0.3 L 0.4-5.4 10 ^3/uL Monocytes # (Auto) 0.1 0-1.3 10 ^3/uL Eosinophils # (Auto) 0 0-0.8 10 ^3/uL Basophils # (Auto) 0 0-0.2 10 ^3/uL Nucleated Red Blood Cells 1.4 % Sodium Level 138 136-145 mmol/L Potassium Level 5.5 H 3.5-5.1 mmol/L Chloride Level 98 98-107 mmol/L Carbon Dioxide Level 29 20-31 mmol/L Anion Gap 11 5-15 Blood Urea Nitrogen 34 H 9-23 mg/dL Creatinine 1.80 H 0.550-1.02 mg/dL Glomerular Filtration Rate Calc 30 >90 mL/min BUN/Creatinine Ratio 18.9 10.0-20.0 Serum Glucose 107 H 74-106 mg/dL Calcium Level 8.8 8.7-10.4 mg/dL Total Bilirubin 1.1 H 0.2-1.0 mg/dL Aspartate Amino Transferase (AST) 136 H 13-40 U/L Alanine Aminotransferase (ALT) 179 H 7-40 U/L Alkaline Phosphatase 75 46-116 U/L Total Protein 7.1 5.7-8.2 g/dL Albumin 4.1 3.2-4.8 g/dL SARS-CoV-2 Antigen (Rapid) Negative NEGATIVE Influenza Type A Antigen Negative Negative Influenza Type B Antigen Positive Negative Troponin I High Sensitivity 71 *H </=34 ng/L Test 06/15/25 11:45 06/15/25 10:45 Range/Units Troponin I High Sensitivity 58 *H 50 *H </=34 ng/L White Blood Count 6.3 4.4-10.8 10^3/uL Red Blood Count 4.99 4.0-5.20 10^6/uL Hemoglobin 13.6 12.2-16.2 g/dL Hematocrit 42.9 36.0-46.0 % Mean Corpuscular Volume 85.8 80.0-100.0 fL Mean Corpuscular Hemoglobin 27.3 L 28.0-32.0 pg Mean Corpuscular Hemoglobin Concent 31.9 L 32.0-36.0 g/dL Red Cell Distribution Width 17.8 H 11.8-14.3 % Platelet Count 355 140-450 10^3/uL Mean Platelet Volume 7.9 6.9-10.8 fL Neutrophils (%) (Auto) 73.8 37.0-80.0 % Lymphocytes (%) (Auto) 14.4 10.0-50.0 % Monocytes (%) (Auto) 10.5 0.0-12.0 % Eosinophils (%) (Auto) 0.5 0.0-7.0 % Basophils (%) (Auto) 0.8 0.0-2.0 % Neutrophils # (Auto) 4.6 1.6-8.6 10 ^3/uL Lymphocytes # (Auto) 0.9 0.4-5.4 10 ^3/uL Monocytes # (Auto) 0.7 0-1.3 10 ^3/uL Eosinophils # (Auto) 0 0-0.8 10 ^3/uL Basophils # (Auto) 0.1 0-0.2 10 ^3/uL Nucleated Red Blood Cells 0.8 % Sodium Level 141 136-145 mmol/L Potassium Level 5.0 3.5-5.1 mmol/L Chloride Level 99 98-107 mmol/L Carbon Dioxide Level 32 H 20-31 mmol/L Anion Gap 10 5-15 Blood Urea Nitrogen 35 H 9-23 mg/dL Creatinine 1.76 H 0.550-1.02 mg/dL Glomerular Filtration Rate Calc 31 >90 mL/min BUN/Creatinine Ratio 19.9 10.0-20.0 Serum Glucose 99 74-106 mg/dL Lactic Acid Level 1.6 0.4-2.0 mmol/L Calcium Level 8.7 8.7-10.4 mg/dL Microbiology Date/Time Source Procedure Growth Status 06/15/25 17:03 Nose MRSA Screen - Final Complete Assessment Acute kidney injury hemodynamic ckd 2 (january GFR 61 COPD with exacerbation sepsis due to influenza + smoker hyperkalemia hyperkalemia treatment potassium restriction renal diet PNA & influenza treatment COPD treatment lasix x1 monitor uop Plan discussed with: Patient JESSYNEHAJONN MD Jun 16, 2025 14:34
[2025-06-16] MEDS: OSELTAMIVIR 30 MG CAP PO ONE (16:09)
[2025-06-16] MEDS: FUROSEMIDE 40 MG/4 ML VIAL IV ONE (16:10)
[2025-06-16] MEDS: DEXTROSE (50%) 50ML SYRG IV ONE (16:11)
[2025-06-16] MEDS: SODIUM BICARB 8.4% 50Meq/50ml SYR Vial IV ONE (16:11)
--- NOTE | 2025-06-16 18:08 | DVH ---
RENAL ULTRASOUND CLINICAL HISTORY: adam TECHNIQUE: Multiple grayscale ultrasound images were obtained through the kidneys and urinary bladder. COMPARISON: None FINDINGS: Right kidney: Measures 10.7 cm. Very mild hydronephrosis. Left kidney: Measures 9.8 cm. Very mild hydronephrosis. Urinary bladder: Unremarkable. Prevoid volume 41 mL the bilateral jets are not visualized. IMPRESSION: 1. Normal size kidneys with very mild bilateral hydronephrosis.
[2025-06-16] MEDS: IPRATROPIUM BROM 0.5 MG/2.5ML INH SOL NEB SCH (19:00)
[2025-06-16] MEDS: ALBUTEROL SULF 2.5 MG/0.5ML(0.5%) NEB SOLN NEB SCH (19:00)
[2025-06-17 00:36] VITALS: PULSE 79; RESP 22; O2SAT 97
[2025-06-17 00:44] VITALS: PULSE 77; RESP 18; O2SAT 97
[2025-06-17 01:00] VITALS: BP 123/76; PULSE 89; RESP 17; TEMP 98.1; O2SAT 77
[2025-06-17 09:00] VITALS: BP 128/73; PULSE 94; RESP 20; TEMP 97.9; O2SAT 91
[2025-06-17] MEDS ORDERED: AZITHROMYCIN 500MG/250ML 250 ML IV SCH (10:00)
[2025-06-17] MEDS ORDERED: OSELTAMIVIR 30 MG CAP PO SCH (10:00)
[2025-06-17] MEDS ORDERED: FAMOTIDINE (10MG/ML) 2ML VL IV SCH (10:00)
[2025-06-17] MEDS ORDERED: ZINC SULFATE 220mg CAP or TAB PO SCH (10:00)
--- NOTE | 2025-06-17 13:08 | DVHDS2 ---
Discharge Summary Date of Admission Jun 15, 2025 at 13:50 Date of Discharge: Jun 17, 2025 Labs/Diagnostic Data: Laboratory Results Test 06/16/25 16:08 06/16/25 05:54 06/15/25 17:53 06/15/25 17:03 POC Glucose 124 mg/dl (70-106) White Blood Count 5.3 10^3/uL (4.4-10.8) Red Blood Count 5.20 10^6/uL (4.0-5.20) Hemoglobin 13.8 g/dL (12.2-16.2) Hematocrit 45.3 % (36.0-46.0) Mean Corpuscular Volume 87.1 fL (80.0-100.0) Mean Corpuscular Hemoglobin 26.5 pg (28.0-32.0) Mean Corpuscular Hemoglobin Concent 30.4 g/dL (32.0-36.0) Red Cell Distribution Width 18.2 % (11.8-14.3) Platelet Count 291 10^3/uL (140-450) Mean Platelet Volume 8.4 fL (6.9-10.8) Neutrophils (%) (Auto) 92.0 % (37.0-80.0) Lymphocytes (%) (Auto) 6.6 % (10.0-50.0) Monocytes (%) (Auto) 1.3 % (0.0-12.0) Eosinophils (%) (Auto) 0.1 % (0.0-7.0) Basophils (%) (Auto) 0.0 % (0.0-2.0) Neutrophils # (Auto) 4.9 10 ^3/uL (1.6-8.6) Lymphocytes # (Auto) 0.3 10 ^3/uL (0.4-5.4) Monocytes # (Auto) 0.1 10 ^3/uL (0-1.3) Eosinophils # (Auto) 0 10 ^3/uL (0-0.8) Basophils # (Auto) 0 10 ^3/uL (0-0.2) Nucleated Red Blood Cells 1.4 % Sodium Level 138 mmol/L (136-145) Potassium Level 5.5 mmol/L (3.5-5.1) Chloride Level 98 mmol/L (98-107) Carbon Dioxide Level 29 mmol/L (20-31) Anion Gap 11 (5-15) Blood Urea Nitrogen 34 mg/dL (9-23) Creatinine 1.80 mg/dL (0.550-1.02) Glomerular Filtration Rate Calc 30 mL/min (>90) BUN/Creatinine Ratio 18.9 (10.0-20.0) Serum Glucose 107 mg/dL (74-106) Calcium Level 8.8 mg/dL (8.7-10.4) Total Bilirubin 1.1 mg/dL (0.2-1.0) Aspartate Amino Transferase (AST) 136 U/L (13-40) Alanine Aminotransferase (ALT) 179 U/L (7-40) Alkaline Phosphatase 75 U/L (46-116) Total Protein 7.1 g/dL (5.7-8.2) Albumin 4.1 g/dL (3.2-4.8) SARS-CoV-2 Antigen (Rapid) Negative (NEGATIVE) Influenza Type A Antigen Negative (Negative) Influenza Type B Antigen Positive (Negative) Test 06/15/25 13:36 06/15/25 10:45 Troponin I High Sensitivity 71 ng/L (</=34) Lactic Acid Level 1.6 mmol/L (0.4-2.0) Other Laboratory Tests 06/16/25 05:54 Brief Hx & Hospital Course: 70-year-old female with past medical history of asthma and hypertension who presented to [facility] ED with complaint of shortness of breaths. Patient reports that she has been experiencing worsening difficulty breathing, increased work of breathing associated with generalized weakness, ankle swelling, green productive cough for the past 2 days. 06/16: Patient is here with flu pneumonia, on COPD history, still smoking quarter pack a day. We will to duo nebs q.6, Rocephin 1 g daily, azithromycin 500 mg daily,. Also treating as pneumonia Gram-negative Gram-positive. We will start zinc 220 daily, Tamiflu 75 mg b.i.d.,. Okay to Atrovent G-tube H 0.5 mg has a prn on top. 06/17: Plan was to evaluate the patient again today for ongoing wheezing and worsening chronic cough acute on chronic. Upon my arrival this a.m., I note that patient has left AMA. Patient left AMA, thus assuming all responsibility and any complications that may arise from having not getting recommended and needed adequate medical care/attention. Complications can include including and/or coma, and any other serious fatal comorbidities. Diagnosis: Acute on chronic hypoxic respiratory failure Influenza B pneumonia Influenza B infection Pneumonia, Gram-negative Gram-positive possible Sepsis due to above Acute COPD exacerbation, with pneumonitis Asthma COPD overlap syndrome Hypotension conclusion: - Patient left AMA, thus assuming all responsibility and any complications that may arise from having not getting recommended and needed adequate medical care/attention. Complications can include including and/or coma, and any other serious fatal comorbidities. Condition at Discharge: Undetermined Final Diagnosis/Problems List Acute on chronic hypoxic respiratory failure Influenza B pneumonia Influenza B infection Pneumonia, Gram-negative Gram-positive possible Sepsis due to above Acute COPD exacerbation, with pneumonitis Asthma COPD overlap syndrome Hypotension Discharge Disposition: AMA Discharge Statement: "Patient was advised to return to the ER or call 911 if any headaches, dizziness, shortness of breath, chest pain, abdominal pain, bleeding, fevers, or worsening of medical condition. Patient was counseled about treatment plan, medications, possible side effects, patientverbalized understanding. All questions were answered to the best of my ability. This discharge took greater then 30 minutes in planning, reviewing documentation, counseling the patient, and discussing with other team members." ASSESSMENT ASSESSMENT Assessment Date of Service: Jun 17, 2025 Billing Provider: BERNIE ROME MD Common Visit Codes: NOT BILLABLE BERNIE ROME MD Jun 17, 2025 13:08
== END 2025-06-17 04:40 | disposition left against medical advice (07) | DRG 871 ==
LOC: ER 10:24 → OVERFLOW 13:50 → TELE-CENTR 21:50
PROVIDERS: ADMIT Student in an Organized Health Care Education/Training Program; ATTEND Student in an Organized Health Care Education/Training Program
DX: A41.50 Gram-negative sepsis, unspecified (principal); J10.01 Influenza due to other identified influenza virus with the same other identified influenza virus pneumonia; J15.69 Pneumonia due to other Gram-negative bacteria; J96.21 Acute and chronic respiratory failure with hypoxia; J10.08 Influenza due to other identified influenza virus with other specified pneumonia; J15.9 Unspecified bacterial pneumonia; J44.0 Chronic obstructive pulmonary disease with (acute) lower respiratory infection; N17.9 Acute kidney failure, unspecified; I12.9 Hypertensive chronic kidney disease with stage 1 through stage 4 chronic kidney disease, or unspecified chronic kidney disease; J45.901 Unspecified asthma with (acute) exacerbation; J44.1 Chronic obstructive pulmonary disease with (acute) exacerbation; Z53.29 Procedure and treatment not carried out because of patient's decision for other reasons; E87.5 Hyperkalemia; N18.2 Chronic kidney disease, stage 2 (mild); J98.4 Other disorders of lung; I95.9 Hypotension, unspecified; F17.200 Nicotine dependence, unspecified, uncomplicated; Z82.49 Family history of ischemic heart disease and other diseases of the circulatory system; Z82.5 Family history of asthma and other chronic lower respiratory diseases
CPT/HCPCS: 36415; 71045; 76775; 80048; 80053; 82962; 83605; 84484; 85025; 87040; 87081; 87426; 87804; 94640; 99291; G0378; G9035; J1815; J3490